=== PATIENT | female | born 1980 | race American Indian/Alaskan Native ===

== ENCOUNTER 2018-10-04 12:42 | Emergency (ER) | payer BC, OTHER ==
[~2018-10-04] VITALS: Ht 157.5 cm; Wt 73.5 kg
[~2018-10-04 12:42] MED LIST: BUDE32NIS; ESOM20 PO; FLUT.05NI; LANS30EC; RABE20; RANI150; RXPROM25 PO; flovent
[2018-10-04] MEDS ORDERED: MOMENI (13:22)
[2018-10-04] MEDS ORDERED: ALVESCO INH (13:22)
[2018-10-04] MEDS ORDERED: HYOS0.375T PO (13:23)
[2018-10-04] MEDS ORDERED: MONT10T PO (13:23)
[2018-10-04] MEDS ORDERED: CETI5 PO (13:23)
[2018-10-04] MEDS ORDERED: AMIT25 PO (13:23)
[2018-10-04] MEDS ORDERED: DHEA PO (13:24)
[2018-10-04] MEDS ORDERED: PROGESTERONE PO (13:25)
[2018-10-04] MEDS ORDERED: ONE DAILY MULT1 EACH PO (13:25)
[2018-10-04] MEDS ORDERED: TESTOST PO (13:25)
[2018-10-04] MEDS ORDERED: COMBIVENT RESPIM4 GM INH (13:26)
[2018-10-04] MEDS ORDERED: ERGO400 PO (13:26)
[2018-10-04] MEDS ORDERED: Vibramycin100 MG PO (14:54)
[2018-10-04] MEDS ORDERED: CEFP200 PO (14:57)
[2018-10-04] MEDS ORDERED: BENZ100A PO (15:01)
[2018-10-04] MEDS ORDERED: Nystatin100000 UN1 PO (15:01)
[2018-10-04] MEDS ORDERED: Cheratussin AC118 ML PO (15:01)
[2018-10-04] MEDS ORDERED: CLOT10 SS (15:57)
== END 2018-10-04 17:25 | disposition home or self-care (01) ==
LOC: ER 12:42
DX: J44.0 Chronic obstructive pulmonary disease with (acute) lower respiratory infection (principal); J18.9 Pneumonia, unspecified organism; Z88.8 Allergy status to other drugs, medicaments and biological substances; Z88.1 Allergy status to other antibiotic agents; Z88.5 Allergy status to narcotic agent; Z79.899 Other long term (current) drug therapy; J44.9 Chronic obstructive pulmonary disease, unspecified; F17.210 Nicotine dependence, cigarettes, uncomplicated
CPT/HCPCS: 71046; 94640; 96365; 96366; 96375; 99283-25; J2930; J7030; J7060

== ENCOUNTER 2024-09-10 02:29 | Emergency (ER) | payer OTHER ==
[~2024-09-10] VITALS: Ht 160 cm; Wt 82.5 kg
[~2024-09-10 02:29] MED LIST changes: +ALVESCO INH; +AMIT25 PO; +BENZ100A PO; +CEFP200 PO; +CETI5 PO; +CLOT10 SS; +COMBIVENT RESPIM4 GM INH; +Cheratussin AC118 ML PO; +DHEA PO; +ERGO400 PO; +HYOS0.375T PO; +MOMENI; +MONT10T PO; +Nystatin100000 UN1 PO; +ONE DAILY MULT1 EACH PO; +PROGESTERONE PO; +TESTOST PO; +Vibramycin100 MG PO
[2024-09-10 03:43] LABS: Influenza B, PCR NEGATIVE (NEGATIVE); Resp Syncytial Virus, PCR NEGATIVE (NEGATIVE); SARS-Cov-2 (COVID-19) PCR, MMC NEGATIVE (NEGATIVE)
[2024-09-10 04:02] LABS: Influenza A, PCR POSITIVE (NEGATIVE)
[2024-09-10] MEDS ORDERED: Albuterol 2.5 MG/3 ML VIAL INH SCH (04:05)
[2024-09-10] MEDS ORDERED: PredniSONE 20 MG Tab PO ONE (04:10)
[2024-09-10] MEDS ORDERED: Oseltamivir Phosphate 75 MG Cap PO ONE (04:10)
[2024-09-10] MEDS ORDERED: Prednisone20 MG PO (05:00)
[2024-09-10] MEDS ORDERED: Tamiflu75 MG PO (05:00)
[2024-09-10] MEDS ORDERED: ALBU2.5V5 INH (05:00)
[2024-09-10 05:15] VITALS: BP 134/72
== END 2024-09-10 05:27 | disposition home or self-care (01) ==
LOC: ER 02:29
PROVIDERS: Emergency Medicine
DX: J45.901 Unspecified asthma with (acute) exacerbation (principal); J10.1 Influenza due to other identified influenza virus with other respiratory manifestations; F17.290 Nicotine dependence, other tobacco product, uncomplicated; Z79.2 Long term (current) use of antibiotics; Z79.620 Long term (current) use of immunosuppressive biologic; Z79.899 Other long term (current) drug therapy; Z91.048 Other nonmedicinal substance allergy status; Z88.1 Allergy status to other antibiotic agents; Z88.8 Allergy status to other drugs, medicaments and biological substances; Z88.5 Allergy status to narcotic agent
CPT/HCPCS: 0241U; 71045; 94644; 94664; A9270; J7512